=== PATIENT | male | born 1975 | race Hispanic/Latino ===

== ENCOUNTER 2018-05-10 09:22 | Emergency (ER) | payer SELFPAY ==
[~2018-05-10] VITALS: Ht 182.9 cm; Wt 100.0 kg
[~2018-05-10 09:22] MED LIST: CEPH500C57 OR; HALDOL DECAN50 MG/ML IM; LORTAB 5 OR; MEDDOSEPAK OR; PAXIL20 MG OR; PEPCID20 MG OR; TRAMADOL HCL50 MG OR
[2018-05-10 09:57] LABS: HEMATOCRIT 40.9 % (39.0-50.0); HEMOGLOBIN 13.7 g/dl (14.0-18.0); IMMATURE GRANULOCYTES 0.4 % (0.0-5.0); MEAN CELL VOLUME 97.1 fL CALC (80.0-100.0); MEAN CORPUSCULAR HGB 32.5 pG CALC (26.0-32.0); MEAN CORPUSCULAR HGB CONC 33.5 g/L CALC (32.0-36.0); NEUT# 6.5 thou/uL (1.82-7.42); RED BLOOD COUNT 4.21 mill/uL (4.70-6.10); RED CELL DISTRI WIDTH 11.8 % (11.5-15.5)
[2018-05-10 09:58] LABS: URINE BILIRUBIN - DIPSTICK NEGATIVE (NEGATIVE); URINE BLOOD DIPSTICK NEGATIVE (NEGATIVE); URINE COLOR YELLOW; URINE GLUCOSE - DIPSTICK NEGATIVE (NEGATIVE); URINE KETONE NEGATIVE (NEGATIVE); URINE LEUK ESTERASE NEGATIVE (NEGATIVE); URINE NITRITE - DIPSTICK NEGATIVE (Negative); URINE UROBILINOGEN - DIPSTICK 0.2 E.U./dL (0.2)
[2018-05-10 10:14] LABS: ALBUMIN 4.6 g/dL (3.2-5.0); ALKALINE PHOSPHATASE 85 u/l (38-126); ANION GAP 12 (6-22 (CALC)); BILIRUBIN, TOTAL 0.5 mg/dL (0.0-1.4); BUN 19 mg/dL (9-20); BUN/CREATININE RATIO 28 (12-20 (CALC)); CARBON DIOXIDE 27 mmol/l (22-30); CHLORIDE 104 mmol/l (95-108); CREATININE 0.7 mg/dL (0.7-1.3); GFR > 60 ML/MIN (>=60 (CALC)); GFR FOR AFR.AMER. > 60 ML/MIN (>=60 (CALC)); LIPASE 46 u/l (23-300); POTASSIUM 4.2 mmol/l (3.5-5.1); SGOT/AST 21 u/l (17-59); SODIUM 139 mmol/l (137-146); TOTAL PROTEIN 7.2 g/dL (6.3-8.2)
[2018-05-10 10:17] LABS: URINE PROTEIN - DIPSTICK Trace mg/dL (NEG-TRACE)
[2018-05-10] MEDS ORDERED: CYCLOBENZAPRINE5 MG PO (12:09)
[2018-05-10 12:11] VITALS: BP 135/67
== END 2018-05-10 12:17 | disposition home or self-care (01) | DRG 552 ==
LOC: ED 09:22
PROVIDERS: Family Medicine
DX: M62.830 Muscle spasm of back (principal); I10 Essential (primary) hypertension; R73.03 Prediabetes
CPT/HCPCS: Q9967